=== PATIENT | female | born 1980 | race Caucasian/White ===

== ENCOUNTER → 2018-05-31 | Outpatient (CLI) | payer OTHER | LOC: FIMAGING 06:48 | PROVIDERS: ATTEND Orthopaedic Surgery | DX: M76.821 Posterior tibial tendinitis, right leg (principal); R93.6 Abnormal findings on diagnostic imaging of limbs; M25.371 Other instability, right ankle; M21.41 Flat foot [pes planus] (acquired), right foot ==